=== PATIENT | female | born 2000 | race Two or more races ===

== ENCOUNTER 2021-04-07 21:24 | Emergency (ER) | payer OTHER ==
[~2021-04-07] VITALS: Ht 284.5 cm; Wt 62.6 kg
[2021-04-07] MEDS ORDERED: ATABEX OB TABL1 EACH (21:37)
[2021-04-07] MEDS ORDERED: DOXYLAMINE-PYR1 EACH (21:37)
[2021-04-07] MEDS ORDERED: MACROBID 100 M100 MG PO (23:56)
== END 2021-04-08 00:12 | disposition home or self-care (01) ==
LOC: ER 21:24
DX: O21.8 Other vomiting complicating pregnancy (principal); Z34.01 Encounter for supervision of normal first pregnancy, first trimester

== ENCOUNTER 2021-10-13 06:10 | Outpatient (CLI) | payer OTHER ==
[~2021-10-13 06:10] MED LIST: ATABEX OB TABL1 EACH; DOXYLAMINE-PYR1 EACH; MACROBID 100 M100 MG PO
== END 2021-10-13 07:29 | disposition home or self-care (01) ==
LOC: NST 06:10
PROVIDERS: ATTEND Obstetrics & Gynecology
DX: Z34.83 Encounter for supervision of other normal pregnancy, third trimester (principal)